=== PATIENT | male | born 2000 | race Caucasian/White ===

== ENCOUNTER 2023-01-23 19:11 | Emergency (ER) | payer OTHER ==
[~2023-01-23] VITALS: Ht 185.4 cm; Wt 87.1 kg
[~2023-01-23 19:11] MED LIST: CEPH250SUA PO; SULTRIEL
[2023-01-23 19:24] VITALS: BP 149/86
[2023-01-23] MEDS ORDERED: AMOCLA875 PO (20:50)
== END 2023-01-23 20:57 | disposition home or self-care (01) ==
LOC: ER 19:11
DX: S91.012A Laceration without foreign body, left ankle, initial encounter (principal); W27.0XXA Contact with workbench tool, initial encounter
CPT/HCPCS: 12002; 99283-25